=== PATIENT | male | born 1965 | race Caucasian/White ===

== ENCOUNTER 2020-08-10 09:32 | Inpatient (IN) | payer MEDICAID ==
[2020-08-10] VITALS (17 sets, daily range): BP systolic 120–156; BP diastolic 74–91
[~2020-08-10] VITALS: Ht 177.8 cm; Wt 95.0 kg
[2020-08-10] MEDS ORDERED: metroNIDAZOLE-Flagyl 500mg/NS 100 ML IV STA (10:12)
[2020-08-10] MEDS ORDERED: levoFLOXACIN-Levaquin 750MG/D5 150 ML IV STA (10:12)
[2020-08-10] MEDS ORDERED: ondansetron/PF 4mg/2ml inj IV PRN ×2 (10:15→16:20)
[2020-08-10] MEDS ORDERED: magnesium 2GM in 50ml NS 50 ML IV PRN (10:15)
[2020-08-10] MEDS ORDERED: acetaminophen 325mg tablet PO PRN (10:15)
[2020-08-10] MEDS ORDERED: bisacodyl 10mg suppository rectal RC PRN (10:15)
[2020-08-10] MEDS ORDERED: mag hydrox/Alum hydrox/simeth 30ml oral suspension PO PRN (10:15)
[2020-08-10] MEDS ORDERED: magnesium 4gm in 100ml NS 100 ML IV PRN (10:15)
[2020-08-10] MEDS ORDERED: potassium Cl 40MEQ/1/2NS 520ml 520 ML IV PRN ×2 (10:15)
[2020-08-10] MEDS ORDERED: potassium Cl 20 mEq SR tablet PO PRN ×2 (10:15)
[2020-08-10] MEDS: normal saline 1000ml 1,000 ML IV SCH ×2 (11:05→20:13)
--- NOTE | 2020-08-10 12:15 | NUR ---
Received pt report from Ed nurse. Addendum: 08/10/20 at 1322 by Kristie Wyatt RN PAGER ID: [phone] MESSAGE: Kristie med/surg [id number] Pt: Olamide [id number] Pt c/o pain, has not pain meds orders. thanks
[2020-08-10] MEDS ORDERED: NO HOME MEDS (13:23)
[2020-08-10] MEDS ORDERED: morphine 4 MG/ML inj SYRINge IV PRN ×2 (13:25→16:20)
[2020-08-10] MEDS ORDERED: morphine 2 MG/ML inj. syringe IV PRN ×2 (13:25→16:20)
--- NOTE | 2020-08-10 14:07 | NUR ---
left message to Alexa/ as she requested RN to call her when patient goes to his room 344.
--- NOTE | 2020-08-10 14:58 | NUR ---
Pt out to OR. Report given to KLAUDIA Israel in Recovery Room.
[2020-08-10] MEDS ORDERED: BUPIVAcaine/PF 2.5 mg/ml (0.25%) 30ml vial ONE (16:09)
[2020-08-10] MEDS ORDERED: meperidine/PF 25mg/ml syringe IV PRN ×3 (16:20)
[2020-08-10] MEDS ORDERED: hydrALAZINE 20mg/ml inj. IV PRN (16:20)
[2020-08-10] MEDS ORDERED: labetalol 20mg/4ml (5mg/ml) syringe IV PRN (16:20)
[2020-08-10] MEDS ORDERED: proCHLORperazine 10 MG/2 ml inj IV PRN (16:20)
[2020-08-10] MEDS ORDERED: ringers solution, lacted 1,000 ML IV SCH (16:20)
[2020-08-10] MEDS ORDERED: acetaminophen 1,000mg/100ml IV 100 ML IV PRN (16:20)
--- NOTE | 2020-08-10 17:33 | NUR ---
Received from OR via ORTHO BED , accompanied by Anesthesiologist REBECCA and report given by Anesthesiolgist. PATIENT WITH 20G PIV IN RIGHT UE RUNNING LR AT 100. PATIENT WITH 3 ABDOMINAL LAP SITES PRESENT THAT ARE CDI. 10L MASK ON WITH 100% SATURATIONS. Addendum: 08/10/20 at 1742 by Anmol Bolaños RN, RN Amended: Links added.
--- NOTE | 2020-08-10 18:16 | NUR ---
Problems reprioritized. Patient report given, questions answered & plan of care reviewed with KLAUDIA Mead.
--- NOTE | 2020-08-10 19:31 | NUR ---
Patient in room [facility] 344. I have received report from Kristie RUDOLPH and had the opportunity to ask questions and assume patient care.
--- NOTE | 2020-08-10 19:51 | NUR ---
Post surgical report received from Anmol RUDOLPH in recovery, had the opportunity to review chart and ask questions regarding patient
[2020-08-10] MEDS: K and/or MAG REPLACEMENT MC SCH (20:00)
[2020-08-10] MEDS ORDERED: enoxaparin 40mg/0.4ml syringe SQ SCH (20:00)
[2020-08-10] MEDS: metroNIDAZOLE-Flagyl 500mg/NS 100 ML IV SCH (20:06)
[2020-08-11 00:15] VITALS: BP 135/90
[2020-08-11] MEDS: metroNIDAZOLE-Flagyl 500mg/NS 100 ML IV SCH ×2 (00:56→07:06)
[2020-08-11 04:19] VITALS: BP 137/84
[2020-08-11] MEDS: benzocaine/menthol oral lozeng 1 EACH BOX MM PRN ×3 (04:29→11:22)
[2020-08-11 07:18] VITALS: BP 122/84
[2020-08-11 07:23] LABS: BASOPHILS % (AUTO) 0.2 % (0-1); EOSINOPHILS % (AUTO) 0 % (0-6); HEMATOCRIT 40.4 % (42.0-52.0); HEMOGLOBIN 13.3 g/dl (14.0-17.9); LYMPHOCYTES # (AUTO) 0.6 X10'3 (1.1-4.8); LYMPHOCYTES % (AUTO) 3.8 % (21-51); MEAN CORPUSCULAR HEMOGLOBIN 29.6 PG (27.0-31.0); MEAN CORPUSCULAR HGB CONC 32.9 g/dL (33.0-36.5); MEAN CORPUSCULAR VOLUME 90.2 FL (78-98); MEAN PLATELET VOLUME 8.9 FL (7.4-10.4); MONOCYTES # (AUTO) 1.4 X10'3 (0-0.9); MONOCYTES % (AUTO) 8.4 % (2-12); NEUTROPHILS # (AUTO) 14.2 X10'3 (1.8-7.7); NEUTROPHILS % (AUTO) 87.6 % (42-75); PLATELET COUNT 277 X10'3 (140-440); RED BLOOD COUNT 4.48 X10'6 (4.70-6.10); RED CELL DISTRIBUTION WIDTH 13.3 % (11.5-14.5); WHITE BLOOD COUNT 16.2 X10'3 (4.5-11.0)
[2020-08-11 07:37] LABS: ALANINE AMINOTRANSFERASE 26 U/L (12-78); ALBUMIN 2.9 G/DL (3.4-5.0); ALBUMIN/GLOBULIN RATIO 0.8 (1.1-1.5); ALKALINE PHOSPHATASE 94 IU/L (46-116); ANION GAP 12 (8-16); ASPARTATE AMINO TRANSFERASE 22 U/L (10-37); BLOOD UREA NITROGEN 16 MG/DL (7-18); BUN/CREATININE RATIO 16.8 (5.4-32.0); CALCIUM 8.7 MG/DL (8.5-10.1); CHLORIDE 104 MMOL/L (99-107); CREATININE 0.95 MG/DL (0.60-1.10); GLUCOSE 118 MG/DL (70-104); MAGNESIUM 1.7 MG/DL (1.5-2.4); POTASSIUM 4.5 MMOL/L (3.5-5.1); SODIUM 138 MMOL/L (135-145); TOTAL PROTEIN 6.7 G/DL (6.4-8.2); eGFR 83 ML/MIN
[2020-08-11] MEDS ORDERED: levoFLOXACIN-Levaquin 750MG/D5 150 ML IV SCH (08:00)
[2020-08-11] MEDS: K and/or MAG REPLACEMENT MC SCH (08:00)
[2020-08-11] MEDS: normal saline 1000ml 1,000 ML IV SCH (09:26)
[2020-08-11] MEDS ORDERED: CIPR-202 PO (10:12)
[2020-08-11] MEDS ORDERED: HYDR-3972 PO (10:12)
[2020-08-11] MEDS ORDERED: METR-159 PO (10:12)
[2020-08-11] MEDS ORDERED: lactobacillus rhamnosus 10,000 MMU CELLS/CAPSULE PO SCH (20:00)
== END 2020-08-11 13:45 | disposition home or self-care (01) | DRG 234 ==
LOC: ER 09:33 → ED HOLD 10:15 → EDBEDREQ 11:02 → SUR 3N 11:41
PROVIDERS: ADMIT Family Medicine; ATTEND Family Medicine
PROC: 0DTJ0ZZ Resection of Appendix, Open Approach (ICD-10-PCS; principal; 2020-08-10 16:22)
DX: K35.80 Unspecified acute appendicitis (principal); F17.210 Nicotine dependence, cigarettes, uncomplicated; Z20.822 Contact with and (suspected) exposure to COVID-19; F43.9 Reaction to severe stress, unspecified; Z87.442 Personal history of urinary calculi; Z88.0 Allergy status to penicillin
CPT/HCPCS: 36415; 80053; 82948; 83735; 85025; 87081; 87635; 99285; A4215; A4618; A7000; G0378; J1650; J1956; J2175; J2270; J3490; J7030; J7120